=== PATIENT | female | born 1985 | race Caucasian/White ===

== ENCOUNTER 2018-08-31 22:15 | Emergency (ER) | payer BC ==
[~2018-08-31] VITALS: Ht 162.6 cm; Wt 56.2 kg
[2018-09-01] MEDS ORDERED: VANCOMYCIN 1G/D5W 200 ML PIGGYBACK IV ONE (00:30)
[2018-09-01] MEDS ORDERED: KETOROLAC TROMETHAMINE 30 MG INJ IVP ONE (00:30)
[2018-09-01] MEDS ORDERED: KETOROLAC TROMETHAMINE 30 MG INJ ONE (00:32)
[2018-09-01] MEDS ORDERED: VANCOMYCIN IV 200 ML ONE (00:33)
--- NOTE | 2018-09-01 02:49 | NUR ---
IV removed. Catheter intact and site benign. Pressure and 4x4 gauze applied to site. No bleeding noted. Patient discharged to home in stable conditon. Written and verbal after care instructions given. Patient verbalizes understanding of instructions.
[2018-09-01 02:50] VITALS: BP 128/80
== END 2018-09-01 02:51 | disposition home or self-care (01) ==
LOC: ER 22:15
DX: L03.113 Cellulitis of right upper limb (principal); F11.10 Opioid abuse, uncomplicated; F15.10 Other stimulant abuse, uncomplicated; F17.200 Nicotine dependence, unspecified, uncomplicated; Z88.0 Allergy status to penicillin; Z88.1 Allergy status to other antibiotic agents
CPT/HCPCS: 93971; 96365; 96375; 99284; J1885; J3370; A4663